=== PATIENT | male | born 1970 | race Caucasian/White ===

== ENCOUNTER → 2017-03-17 | Day surgery (SDC) | payer BC ==
[~2017-03-17] MED LIST: NO MEDICATIONS
--- NOTE | ~2017-03-17 | OR ---
Unit #: [id number] #: [id number] Patient: JEANIE BARRIGA [id number] [address] [address] [id number] O MR#: [id number] NAME: JEANIE BARRIGA ROOM: Date of Procedure: 03/17/2017 Admission Date: 03/17/2017 Surgeon: Rishabh Uriarte M.D. : 1970 Attending Physician: Rishabh Uriarte M.D. Primary Care Physician: James Shaver M.D. OPERATIVE REPORT POSTOPERATIVE DIAGNOSES 1. Screening colonoscopy. 2. History of colonic polyps. POSTOPERATIVE DIAGNOSES 1. Screening colonoscopy. 2. History of colonic polyps. PROCEDURE PERFORMED Colonoscopy to terminal ileum. ANESTHESIA Monitored anesthesia care. FINDINGS The patient was found to have a normal terminal ileum, a rare shallow sigmoid diverticulum, and mild internal hemorrhoids. SPECIMENS None. COMPLICATIONS None apparent. CONDITION The patient tolerated the procedure well. INDICATIONS FOR PROCEDURE The patient is a 46-year-old white male, who presents at this time for screening colonoscopy. He had a colonoscopy several years ago and had colonic polyps. He presents at this time for surveillance colonoscopy. DESCRIPTION OF PROCEDURE After obtaining informed consent, the patient was brought to the endoscopy suite and after adequate monitored anesthesia care, had the colonoscope placed through the anus and advanced slowly to the level of the cecum without difficulty with lumen always in view. We were able to pass through the ileocecal valve into the terminal ileum. The terminal ileum was normal as was the ileocecal valve. The cecum was normal. The ascending colon was normal as was the hepatic flexure, transverse colon, splenic flexure, and descending colon. In the sigmoid colon, there was a Unit #: [id number] #: [id number] Patient: JEANIE BARRIGA very rare shallow sigmoid diverticulum seen. Other than this, there was no abnormality seen in the sigmoid colon, rectosigmoid, and rectum. On retroflexing in the rectum to the anorectal junction, the patient was found to have some mild internal hemorrhoids. The scope was removed without difficulty. The patient tolerated the procedure well, went from the endoscopy suite to the recovery area in stable condition. RECOMMENDATIONS High-fiber diet, lots of liquids, tucks or wipes p.r.n. Diverticular sheet given. Followup as needed. Dictated by... Pretty Rashid/lisa TD: 03/17/2017 07:58 JOB #: [id number] CC: [facility] OPERATIVE REPORT Page 1 of 1 X Rishabh Uriarte MD X PROCEDURE OPERATIVE NOTE
== END | disposition home or self-care (01) ==
LOC: COPS 05:12
DX: Z12.11 Encounter for screening for malignant neoplasm of colon (principal); K57.30 Diverticulosis of large intestine without perforation or abscess without bleeding; K64.8 Other hemorrhoids; F17.210 Nicotine dependence, cigarettes, uncomplicated; Z86.010 Personal history of colon polyps; Z88.0 Allergy status to penicillin; Z98.890 Other specified postprocedural states
CPT/HCPCS: J2250